=== PATIENT | female | born 1980 | race African-American/Black ===

== ENCOUNTER 2022-07-29 17:38 | Emergency (ER) | payer SELFPAY ==
[~2022-07-29] VITALS: Ht 160 cm; Wt 88.0 kg
[2022-07-29 17:45] VITALS: BP 120/77
== END 2022-07-29 22:45 | disposition left against medical advice (07) ==
LOC: ER 17:38
DX: Z53.21 Procedure and treatment not carried out due to patient leaving prior to being seen by health care provider (principal)